=== PATIENT | male | born 1960 | race Caucasian/White ===

== ENCOUNTER 2021-08-24 14:25 | Emergency (ER) | payer SELFPAY ==
[~2021-08-24] VITALS: Ht 172.7 cm; Wt 79.0 kg
[~2021-08-24 14:25] MED LIST: HYDR12.575 PO
[2021-08-24] MEDS ORDERED: IBUPROFEN 400 MG TABLET. PO ONE (15:00)
--- NOTE | 2021-08-24 16:01 | RAD ---
EXAM: XR BILATERAL HIP (WITH OR WITHOUT PELVIS) 2 VIEWS_RIGHT 08/24/2021 3:11 PM CLINICAL INDICATION: Hip pain with past injury COMPARISON: Right hip radiograph 07/22/2016 TECHNIQUE: AP view of the pelvis and AP and frog-leg lateral view of the right hip. FINDINGS: No acute fracture. No dislocation. There is unchanged severe bilateral hip joint space mainor rowing with subchondral cysts and sclerosis and flattening/collapse of the femoral heads. Prominent o steophyte at the right acetabulum. Pubic symphysis and sacroiliac joints are normal. Mild lower lumba r degenerative disc disease. IMPRESSION: 1. No acute osseous abnormality. 2. Unchanged severe bilateral osteoarthritis of the hips with flattening/collapse of the femoral head s, greater on the right. Underlying avascular necrosis is possible. Electronically signed by: Amanda Caldwell MD (08/24/2021 3:59 PM) [id number]
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
[2021-08-24] MEDS ORDERED: AMLO10TA4 PO (16:18)
[2021-08-24] MEDS ORDERED: AMLO-187 PO (16:44)
[2021-08-24 16:53] VITALS: BP 183/90
== END 2021-08-24 16:53 | disposition home or self-care (01) ==
LOC: ER 14:25
DX: M25.551 Pain in right hip (principal); I10 Essential (primary) hypertension; F17.200 Nicotine dependence, unspecified, uncomplicated
CPT/HCPCS: 73502; 99283

== ENCOUNTER 2021-11-09 20:05 | Emergency (ER) | payer SELFPAY ==
[~2021-11-09] VITALS: Ht 175.3 cm; Wt 75.0 kg
[~2021-11-09 20:05] MED LIST changes: +AMLO-187 PO; +AMLO10TA4 PO
[2021-11-09 20:52] LABS: BASO # 0.2 x10^3/uL (0.0-0.2); BASO % 2 % (0-3); EOS # 0.2 x10^3/uL (0.0-0.7); EOS % 2 % (0-3); HEMATOCRIT 28.5 % (39.0-53.0); HEMOGLOBIN 9.3 g/dL (13.0-17.5); LYMPH # 1.5 x10^3/uL (1.0-4.8); LYMPH % 12 % (24-48); MEAN CORPUSCULAR HEMOGLOBIN 29 pg (25-35); MEAN CORPUSCULAR HGB CONC 33 g/dL (31-37); MEAN CORPUSCULAR VOLUME 89 fL (79-100); MONO # 1.1 x10^3/uL (0.0-1.1); MONO % 9 % (0-9); NEUT # 9.1 x10^3/uL (1.8-7.7); NEUT % 75 % (31-73); PLATELET COUNT 449 x10^3/uL (140-400); RED BLOOD COUNT 3.21 x10^6/uL (4.30-5.70); RED CELL DISTRIBUTION WIDTH 14.6 % (11.5-14.5); WHITE BLOOD COUNT 12.1 x10^3/uL (4.0-11.0)
--- NOTE | 2021-11-09 20:56 | RAD ---
EXAMINATION: Chest radiograph. VIEWS: 2 COMPARISON: None INDICATION:60 years, Male, chest pain. FINDINGS: Borderline enlarged cardiomediastinal silhouette. Mildly tortuous thoracic aorta. Bibasilar subsegmen octaviano patchy airspace opacities. Linear scarring in the abdomen. Scattered calcified granuloma. No pleu ral effusion or pneumothorax. No acute osseous process. Median sternotomy wires. IMPRESSION: Bibasilar subsegmental airspace opacities may represent atelectasis, scarring or infection/inflammati on. Electronically signed by: Ramona Ledesma MD (11/09/2021 8:53 PM) [facility]
[2021-11-09 21:00] LABS: CALCIUM 7.9 mg/dL (8.5-10.1); CREATININE 1.1 mg/dL (0.7-1.3); GFR 68.5; POTASSIUM 3.9 mmol/L (3.5-5.1)
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
[2021-11-09] MEDS: NITROGLYCERIN SUBLINGUAL 0.4 MG BOTTLE OF 25. SL PRN ×2 (23:07→23:14)
[2021-11-10 00:41] VITALS: BP 147/82
--- NOTE | 2021-11-10 06:12 | EKG ---
[facility] [address] [place] [address] Test Date: 2021-11-09 Test Time: 20:09:59 Pat Name: ALDA CHAPA Department: Room: Gender: M Production [employer]er: : [id number] Requested By: CHRISTINA WINSTON Order Number: [id number] Reading MD: Measurements Intervals [place] Rate: 63 P: 51 NC: 156 QRS: 51 QRSD: 92 T: 72 QT: 436 QTc: 449 Interpretive Statements SINUS RHYTHM NO SPECIFIC ECG ABNORMALITIES RI6.01 No previous ECG available for comparison
== END 2021-11-10 00:50 | disposition short-term general hospital (02) ==
LOC: ER 20:05
DX: R07.89 Other chest pain (principal); I10 Essential (primary) hypertension; F17.200 Nicotine dependence, unspecified, uncomplicated; F10.20 Alcohol dependence, uncomplicated; Y90.9 Presence of alcohol in blood, level not specified
CPT/HCPCS: 36415; 71046; 80048; 84484; 85025; 93005; 99285-25